=== PATIENT | female | born 1940 | race Caucasian/White ===

== ENCOUNTER → 2022-12-23 14:10 | Outpatient (BNVA) | payer MEDICARE, SELFPAY | PROVIDERS: Visit Provider Nurse Practitioner Family | DX: R39.9 Unspecified symptoms and signs involving the genitourinary system (principal); N39.0 Urinary tract infection, site not specified; R82.90 Unspecified abnormal findings in urine | CPT/HCPCS: 81000; 87077; 87086; 87184 ==

== ENCOUNTER 2023-05-20 04:15 | Inpatient (IN) | payer MEDICARE, SELFPAY ==
[2023-05-20] VITALS (27 sets, daily range): BP systolic 110–159; BP diastolic 56–84; PULSE 59–91; RESP 12–24; TEMP 36.3–37.1; O2SAT 90–100
--- NOTE | 2023-05-20 | XR_ITS ---
WS: [id number] XR hip LT 2-3V wo/w pel* [id number] REASON FOR EXAM: ALOK PICS FINDINGS: Long intramedullary xuan and large femoral nail fixation of intra/subtrochanteric fracture. Surgical appliances are intact and in proper position and alignment. Fracture fragments are in good position and alignment. Nondisplaced fractures of the left superior and inferior pubic ramus of unknown chronicity. IMPRESSION: Left hip fracture with fixation without abnormality. Left pubic rami fractures of unknown chronicity.
--- NOTE | 2023-05-20 04:19 | XRR_ITS ---
PROCEDURE INFORMATION: Exam: XR Left Hip Exam date and time: 05/20/2023 4:41 AM Age: 82 years old Clinical indication: Injury or trauma; Fall; Blunt trauma (contusions or hematomas); Left; Hip; Additional info: Fall pain TECHNIQUE: Imaging protocol: Radiologic exam of the left hip. Views: 2 or 3 views hip with pelvis when performed. COMPARISON: No relevant prior studies available. FINDINGS: Bones/joints: There is comminuted intertrochanteric fracture of the left femur. There is 90 degrees of lateral apex angulation. Additional fracture of the left pubic inferior and superior ramus. Soft tissues: Unremarkable. XR/XR hip LT 2-3V wo/w pel* [id number] IMPRESSION: 1. Comminuted and lateral angulated displaced intertrochanteric fracture of the left femur. 2. Minimally displaced fractures of the left superior and inferior pubic ramus.
--- NOTE | 2023-05-20 04:19 | XRR_ITS ---
PROCEDURE INFORMATION: Exam: XR Chest Exam date and time: 05/20/2023 4:31 AM Age: 82 years old Clinical indication: Injury or trauma; Fall; Blunt trauma (contusions or hematomas) TECHNIQUE: Imaging protocol: Radiologic exam of the chest. Views: 1 view. COMPARISON: No relevant prior studies available. FINDINGS: Tubes, catheters and devices: Surgical clips appreciated over the left hemiabdomen. Lungs: Linear opacities in the retrocardiac and left basilar region. Pleural spaces: Slight blunting of the left costophrenic angle Heart/Mediastinum: Unremarkable. No cardiomegaly. Bones/joints: Unremarkable. XR/XR chest 1V portable [id number] IMPRESSION: Findings suggest small left pleural effusion and associated atelectasis. Superimposed infection is not ruled out.
--- NOTE | 2023-05-20 04:29 | ED_ITS ---
HPI - Fall 2 General: Chief Complaint: Fall Stated Complaint: Fall/ LT hip pain Time Seen by Provider: 05/20/23 04:20 History of Present Illness: Patient presents to the ER secondary to mechanical fall and falling on her left hip having intense pain and inability to ambulate. EMS gave the patient 75 mcg of fentanyl 25 mg of ketamine 30 mg of Toradol and 4 mg of Zofran in the ambulance on the way to the ER. Patient does not complain of pain anywhere else other than her left hip region. Review of Systems 2 General: Reports: 10 or more systems reviewed and unremarkable except in HPI and below Physical Exam 2 Const: COMMON NORMALS: no acute distress, average body habitus, no limitations, healthy appearing, alert and well nourished HENMT: COMMON NORMALS: normocephalic, hearing grossly normal bilaterally, external ears normal, Normal external nose present and moist oral mucous membranes HEAD & SCALP: normocephalic NOSE: Normal external nose present EXTERNAL EAR: Yes external ears normal Neck/C-Spine: COMMON NORMALS: full ROM, no lymphadenopathy, supple, no meningeal signs, no JVD and Thyroid normal THYROID: Thyroid normal Chest: COMMONS NORMALS: normal inspection of the chest and normal palpation of entire chest wall Resp: COMMON NORMALS: normal respiratory effort, No retractions, No use of accessory muscles and clear to auscultation bilaterally AUSCULTATION: clear to auscultation bilaterally Cardio: COMMON NORMALS: no JVD, regular rate, regular rhythm, S1 normal heart sound present, S2 normal heart sound present, No gallops present (Cardio), No clicks present (Cardio) and No murmurs present (Cardio) RATE: regular rate RHYTHM: regular rhythm HEART SOUNDS: S1 normal heart sound present and S2 normal heart sound present GI: COMMON NORMALS: Normal to inspection, nondistended, normoactive bowel sounds present, Soft to palpation, non-tender and No hepatosplenomegaly present PALPATION: Yes Soft to palpation and Yes No hepatosplenomegaly present Extremity: NARRATIVE EXTREMITY EXAM: Patient's left hip. Tender to palpate, possible deformity with rotation noted. Neuro: SENSORIUM/ORIENTATION: Yes alert MENINGEAL SIGNS: Yes no meningeal signs Course 2 Vital Signs: Vital signs: Vital Signs Temperature 97.9 F 05/20/23 04:16 Pulse Rate 59 L 05/20/23 04:16 Respiratory Rate 18 05/20/23 04:53 Blood Pressure 141/79 05/20/23 04:16 Pulse Oximetry 98 05/20/23 04:53 Oxygen Delivery Me thod Room Air 05/20/23 04:16 MDM - Fall Medical Decision Making Left hip and pelvis x-ray showed what I would call left intertrochanteric hip fracture. Presurgical lab work, EKG, chest x-ray was obtained. All pending. was consulted who agreed for admission to the hospitalist and he will further evaluate her today. Dr. Conde was consulted who agreed for inpatient placement secondary to further evaluation and treatment. Differential Diagnosis Unlikely syncope, dislocation of shoulder region, fracture of wrist, compression fracture or concussion with loss of consciousness Medical Records I reviewed the patient's medical records. Lab Data I reviewed the patient's lab results. 05/20/23 05:04 05/20/23 05:04 Laboratory Results WBC 22.12 10^3/uL (3.29-11.43) H 05/20/23 05:04 RBC 4.64 10^6/uL (3.85-5.65) 05/20/23 05:04 Hgb 14.20 g/dL (11.27-16.99) 05/20/23 05:04 Hct 41.5 % (36-47) 05/20/23 05:04 MCV 89.4 fl (85-98) 05/20/23 05:04 MCH 30.6 pg (27-33) 05/20/23 05:04 MCHC 34.2 g/dL (30-55) 05/20/23 05:04 RDW 13.2 % (12.1-15.1) 05/20/23 05:04 Plt Count 263 10^3/cmm (157-399) 05/20/23 05:04 MPV 10.3 fL (7.4-10.4) 05/20/23 05:04 Neut % (Auto) 87.6 % 05/20/23 05:04 Lymph % (Auto) 5.2 % 05/20/23 05:04 [place] % (Auto) 5.9 % 05/20/23 05:04 Eos % (Auto) 0.0 % 05/20/23 05:04 Baso % (Auto) 0.3 % 05/20/23 05:04 Neut # (Auto) 19.36 10^3/uL (1.8-7.7) H 05/20/23 05:04 Lymph # (Auto) 1.2 10^3/uL (0.8-4.8) 05/20/23 05:04 [place] # (Auto) 1.3 10^3/uL (0.2-0.9) H 05/20/23 05:04 Eos # (Auto) 0.0 10^3/uL (0.0-0.8) 05/20/23 05:04 Baso # (Auto) 0.1 10^3/uL (0.0-0.1) 05/20/23 05:04 Nucleated RBC % (auto) 0 % 05/20/23 05:04 Nucleated RBCs # 0.0 /100WBC 05/20/23 05:04 All radiology interpretation(s) finalized by discharge EKG Data EKG 1: I personally reviewed and interpreted this EKG as follows: EKG interpretation date: 05/20/23 EKG interpretation time: 05: Prior EKG tracings: not available for review Interpretation: EKG showed ventricular rate 55 beats minute, [place] interval 154, QRS duration 96, QTc of 427, sinus bradycardia, borderline left axis deviation, Discharge Plan Discharge Patient Disposition: Admitted As Inpatient Clinical Impression: Closed fracture of left hip, Fall, Leukocytosis, Hypothyroidism Condition: Stable Coding Level of Care Code ED Science Technician for Tristan Hubbard
[2023-05-20] MEDS: morphine 4 mg/mL SDV 1 mL IVP (04:53)
[2023-05-20] MEDS: ondansetron 2 mg/ML SDV 2 mL 4 MG IVP ×5 (04:53→23:39)
--- NOTE | 2023-05-20 04:54 | ECG_ITS ---
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 Measurements Intervals [place] Rate: 55 P: 68 [place]: 154 QRS: -29 QRSD: 96 T: -63 QT: 438 QTc: 421 Interpretive Statements SINUS BRADYCARDIA BORDERLINE LEFT AXIS DEVIATION [QRS AXIS < -20] MODERATE T-WAVE ABNORMALITY, CONSIDER INFERIOR ISCHEMIA [-0.1+ mV T-WAVE IN II/aVF] No previous ECG available for comparison Electronically Signed On 05-21-2023 23:17:38 BIOLOGICAL SCIENCES INSTRUCTOR by Casey Segura M.D. [id number]
[2023-05-20 05:15] LABS: Basophils # 0.1 10^3/uL (0.0-0.1); Basophils % 0.3 %; Hematocrit 41.5 % (36-47); Lymphocytes # 1.2 10^3/uL (0.8-4.8); Lymphocytes % 5.2 %; Mean Corpuscular HGB Conc 34.2 g/dL (30-55); Mean Corpuscular Hemoglobin 30.6 pg (27-33); Mean Corpuscular Volume 89.4 fl (85-98); Mean Platelet Volume 10.3 fL (7.4-10.4); Monocytes # 1.3 10^3/uL (0.2-0.9); Monocytes % 5.9 %; Neutrophils # 19.36 10^3/uL (1.8-7.7); Neutrophils % 87.6 %; Nucleated Red Blood Cells % 0 %; Platelet Count 263 10^3/cmm (157-399); Red Blood Count 4.64 10^6/uL (3.85-5.65); Red Cell Distribution Width 13.2 % (12.1-15.1); White Blood Count 22.12 10^3/uL (3.29-11.43)
--- NOTE | 2023-05-20 05:15 | ECG_ITS ---
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 Measurements Intervals [place] Rate: 55 P: 68 MT: 154 QRS: -29 QRSD: 96 T: -63 QT: 438 QTc: 421 Interpretive Statements SINUS BRADYCARDIA BORDERLINE LEFT AXIS DEVIATION [QRS AXIS < -20] MODERATE T-WAVE ABNORMALITY, CONSIDER INFERIOR ISCHEMIA [-0.1+ mV T-WAVE IN II/aVF] No previous ECG available for comparison Electronically Signed On 05-21-2023 23:17:32 ESTHETICIAN PERMANENT MAKEUP ARTIST by Casey Segura M.D. [id number]
[2023-05-20 05:27] LABS: INR 1.38 (0.8-1.2)
[2023-05-20 05:34] LABS: Troponin(5th) Baseline 9 ng/L (0-10)
--- NOTE | 2023-05-20 05:45 | CTR_ITS ---
PROCEDURE INFORMATION: Exam: CT Head Without Contrast Exam date and time: 05/20/2023 6:12 AM Age: 82 years old Clinical indication: Injury or trauma; Fall; Blunt trauma (contusions or hematomas); Additional info: AMS TECHNIQUE: Imaging protocol: Computed tomography of the head without contrast. Radiation optimization: All CT scans at this facility use at least one of these dose optimization techniques: automated exposure control; mA and/or kV adjustment per patient size (includes targeted exams where dose is matched to clinical indication); or iterative reconstruction. COMPARISON: No relevant prior studies available. RADIATION DOSE METRICS: Total DLP (mGy-cm): 1035.19 FINDINGS: Brain: No hemorrhage. Periventricular white matter lucency represents atherosclerotic encephalopathic changes. No mass effect. Cerebral ventricles: No ventriculomegaly. Ventricular prominence proportionate to the degree of atrophy observed. Paranasal sinuses: Visualized sinuses are unremarkable. No fluid levels. Mastoid air cells: Visualized mastoid air cells are well aerated. Bones/joints: Unremarkable. No acute fracture. Soft tissues: Unremarkable. CT/CT head wo con* [id number] IMPRESSION: No acute intracranial abnormality.
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
[2023-05-20 05:50] LABS: Lactic Sepsis W/Reflex 3.3 mmol/L (0.5-2.2)
[2023-05-20 05:56] LABS: Add Urine Microscopic? YES; Bilirubin Urine Neg (Negative); Blood Urine 3+ (Negative); Glucose Urine UA Norm (Normal); Ketones Urine 2+ (Negative); Leukocyte Esterase Urine 2+ (Negative); Nitrate Urine Positive (Negative); Protein Urine Trace (Negative); Urine Appearance Hazy (CLEAR); Urine Color Yellow (Yellow); Urobilinogen Urine Neg (Negative); pH Urine 5 (5-7)
[2023-05-20 05:59] LABS: Bacteria Urine 3+ /hpf; RBC Urine 15-25 /hpf (0-2); Squamous Epithelial Cell Urine 0-4 /hpf (0-5); WBC Urine 15-25 /hpf (0-5)
[2023-05-20 06:00] LABS: Add Urine Culture? Yes; Mucus Urine 1+ /hpf
[2023-05-20 06:19] LABS: Alanine Aminotransferase 17 U/L (0-33); Albumin Level 3.6 g/dL (3.5-5.2); Alkaline Phosphatase 74 U/L (35-105); Aspartate Amino Transferase 19 U/L (0-32); Blood Urea Nitrogen 9 mg/dL (8-23); Calcium 8.7 mg/dL (8.5-10.5); Carbon Dioxide 22 mmol/L (22-29); Chloride 108 mmol/L (98-107); Creatine Phosphokinase 82 U/L (26-192); Globulin 2.2 g/dL (1.3-4.6); Glucose 153 mg/dL (65-115); Lipase 21 U/L (13-60); Magnesium 1.6 mg/dL (1.7-2.3); Osmolality Calculated 294 mOsm/kg (285-295); Phosphorus 2.1 mg/dL (2.5-4.5); Sodium 141 mmol/L (136-145); Total Bilirubin 1.5 mg/dL (0.15-1.2); Total Protein 5.8 g/dL (6.6-8.7)
[2023-05-20 06:20] LABS: Anion Gap 14.3 (5-19); Potassium 3.3 mmol/L (3.5-5.1)
[2023-05-20 06:26] LABS: Procalcitonin 0.09 ng/mL (0-0.5)
--- NOTE | 2023-05-20 07:20 | ECG_ITS ---
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 Measurements Intervals [place] Rate: 56 P: 59 [place]: 163 QRS: -52 QRSD: 93 T: -73 QT: 456 QTc: 441 Interpretive Statements SINUS BRADYCARDIA LEFT ANTERIOR FASCICULAR BLOCK [QRS AXIS <= -45, QR IN I, RS IN II] MODERATE T-WAVE ABNORMALITY, CONSIDER ANTEROLATERAL ISCHEMIA [-0.1+ mV T-WAVE IN V3-V6] MODERATE T-WAVE ABNORMALITY, CONSIDER INFERIOR ISCHEMIA [-0.1+ mV T-WAVE IN II/aVF] Compared to ECG 05/20/2023 05:02:28 Left anterior fascicular block now present T-wave abnormality still present Possible ischemia still present Electronically Signed On 05-21-2023 23:28:15 SOFTWARE IMPLEMENTATION PROJECT MANAGER by Casey Segura M.D. [id number]
[2023-05-20 07:22] LABS: Reflex Lactate Order REFLEX LACTIC ORDERD
--- NOTE | 2023-05-20 07:26 | PC.PHAR ---
pt and pts family verified pts medications-pt states she takes her levothyroxine 75mcg on odd days and 50mcg on even days-pts family states the pt has trouble swallowing so states they give her liquid b complex,multivitamins,zinc and iodine-pt states she takes an acid webmethods consultant otc states she is unsure on the name ext shows prilosec 40mg daily filled 10/08/22 90d/s-notes are made in the pharmacy comments
[2023-05-20] MEDS: pantoprazole 40 mg SDV IVP (07:46)
[2023-05-20] MEDS: morphine 4 mg/mL SDV 1 mL 2 MG IVP (07:46)
[2023-05-20 07:53] LABS: Adenovirus Not Detected (NOT DETECT); Chlamydia Pneumoniae Not Detected (NOT DETECT); Coronavirus 229E,HKU1,NL63,OC4 Not Detected (NOT DETECT); Human Metapneumovirus Not Detected (NOT DETECT); Human Rhinovirus/Enterovirus Not Detected (NOT DETECT); Influenza A Not Detected (NOT DETECT); Influenza A H1 Not Detected (NOT DETECT); Influenza A H1-2009 Not Detected (NOT DETECT); Influenza A H3 Not Detected (NOT DETECT); Influenza B Not Detected (NOT DETECT); Mycoplasma Pneumoniae Not Detected (NOT DETECT); Parainfluenza Virus Type 1 Not Detected (NOT DETECT); Parainfluenza Virus Type 2 Not Detected (NOT DETECT); Parainfluenza Virus Type 3 Not Detected (NOT DETECT); Parainfluenza Virus Type 4 Not Detected (NOT DETECT); Respiratory Syncytial Virus A Not Detected (NOT DETECT); Respiratory Syncytial Virus B Not Detected (NOT DETECT); SARS-COV-2 Not Detected (NOT DETECT)
[2023-05-20] MEDS: dextrose 5%-sod chloride 0.9% 1,000 ML 75 ML IV ×2 (07:57→12:39)
[2023-05-20 08:13] LABS: Estmated Average Glucose 108; Hemoglobin A1C 5.4 % (4.0-6.0)
[2023-05-20 08:14] LABS: Troponin 5 2HR 8.34 ng/L (0-10)
[2023-05-20 08:16] LABS: Troponin 5 2HR Delta -0.66 ABS# (0-10)
[2023-05-20 08:23] LABS: Thyroid Stimulating Hormone 14.56 uIU/mL (0.27-4.20)
--- NOTE | 2023-05-20 08:24 | PC.NURSE ---
PATIENT TAKEN TO SURGERY FROM THE ER AT 0823.
--- NOTE | 2023-05-20 08:29 | P.CONIM_ITS ---
Providers/Reason For Consult 2 Consulting Physician/Specialty*: Hospitalist Reason for Consult*: Left hip fracture Attending Physician: Brunilda Kelley MD History of Present Illness History of Present Illness Vaishali Retana is a 82 year old female sustained a left intertrochanteric hip fracture after a fall in the bathroom. She is complaining of pain in his left hip and leg is shortened externally rotated. Review of Systems 2 Const: Denies: fever(s) Card: Denies: chest pain Resp: Denies: dyspnea GI: Denies: abdominal pain : Denies: flank pain Medications/Allergies Home Medications Medication Instructions Recorded Confirmed Last Taken Type Iodine Liquid See Rx Instructions .Route .COMPLEX 05/20/23 05/20/23 Unknown History Zinc Liquid See Rx Instructions .Route .COMPLEX 05/20/23 05/20/23 Unknown History levothyroxine 50 mcg tablet 50 mcg PO .ON EVEN DAYS 05/20/23 05/20/23 Unknown History levothyroxine 75 mcg tablet 75 mcg PO .ON ODD DAYS 05/20/23 05/20/23 Unknown History llcldgwp-jelp-ptuooat gluconate 9 See Rx Instructions .Route .COMPLEX 05/20/23 05/20/23 Unknown History mg iron/15 mL (15 mL) oral liquid (Liquid Multivitamin) omeprazole magnesium 20 mg 20 mg PO BEDTIME 05/20/23 05/20/23 Unknown History capsule,delayed release (Acid Admitting Interviewer (omeprazole)) vitB2 1.7 mg-niacin 20 mg-B6 2 See Rx Instructions .Route .COMPLEX 05/20/23 05/20/23 Unknown History mg-B12 1.2 mg/mL-dexpan sublingual liqd (B Complex) Allergies Allergy/AdvReac Type Severity Reaction Status Date / Time No Known Allergies Allergy Verified 05/20/23 07:15 Current Medications Generic Name Dose Route Start Last Admin Trade Name Freq PRN Reason Stop Dose Admin Dextrose/Sodium Chloride 1,000 mls @ 75 mls/hr 05/20/23 07:26 05/20/23 07:57 Dextrose 5%-Sod Chloride 0.9% IV 75 mls/hr .[id number] FERN Administration Morphine Sulfate 2 mg 05/20/23 07:26 05/20/23 07:46 Morphine 4 Mg/Ml Sdv 1 Ml IVP 2 mg Q4H PRN Administration SEVERE PAIN Ondansetron HCl 4 mg 05/20/23 07:26 05/20/23 07:46 Ondansetron 2 Mg/Ml Sdv 2 Ml IVP 4 mg Q8H PRN Administration vomiting, or N/V if npo Pantoprazole Sodium 40 mg 05/20/23 07:26 05/20/23 07:46 Pantoprazole 40 Mg Sdv IVP 40 mg Q24H FERN Administration PFSH Acute 2 PFSH: Medical History (Updated 05/20/23 @ 05:53 by Josesito Quintero MD) History of hypothyroidism Surgical History (Updated 05/20/23 @ 05:49 by Josesito Quintero MD) History of appendectomy Social History (Updated 05/20/23 @ 05:49 by Josesito Quintero MD) Smoking and tobacco/nicotine status: never used tobacco/nicotine Alcohol intake: never Substance/Drug Use: never Vitals/I&O/Wt Last Vital Signs Temp 97.9 F 05/20/23 04:16 Pulse 65 05/20/23 08:00 Resp 19 H 05/20/23 07:46 BP 152/81 05/20/23 08:00 Pulse Ox 99 05/20/23 08:00 O2 Del Method Nasal Cannula 05/20/23 08:04 O2 Flow Rate 2 05/20/23 08:00 Weight last 48 hrs Weight 120 lb Physical Exam 2 Narrative: Left leg shortened and externally rotated Urinary Catheter Management: Cornelius: Cath Placed During This Visit: yes Urinary Catheter Date of Insertion: 05/20/23 Urinary Catheter Time of Insertion: 05:41 Data 05/20/23 05:04 05/20/23 05:56 A&P Assessment and plan (1) Closed fracture of left hip: Left hip nail today. I had an open and honest discussion with the patient about the risks, benefits and alternatives to both surgical and nonsurgical treatment. The patient verbalized understanding of the inherent unpredictability associated with surgery. Risk of surgery were discussed including, but not limited to, infection, bleeding, temporary and permanent nerve damage, continued pain, stiffness, incomplete healing, need for revision surgery, blood clot and other complications. The patient verbalized understanding that there is spine is elective in nature and if they find any of these risks to be unacceptable then they should choose not to have the surgery. The patient verbalized understanding of these risks and elected to proceed with the surgery. Qualifiers: Encounter type: initial encounter Qualified Code(s): S72.002A - Fracture of unspecified part of neck of left femur, initial encounter for closed fracture Coding Level of Care Code Acute Code for Chg Fwd Diagnoses Closed fracture of left hip S72.002A Encounter type: initial encounter
--- NOTE | 2023-05-20 08:43 | P.ANESASSM_ITS ---
Pre-Anesthetic Assessment Height/Weight: Height 1.65 m Weight 54.431 kg Temp Pulse Resp BP Pulse Ox O2 Del Method O2 Flow Rate 97.9 F 65 19 H 152/81 99 Nasal Cannula 2 05/20/23 04:16 05/20/23 08:00 05/20/23 07:46 05/20/23 08:00 05/20/23 08:00 05/20/23 08:04 05/20/23 08:00 Preop Diagnosis: left hip fracture Operation Date: 05/20/23 15:50 Proposed Procedures p Trochanteric Femoral Nail(Left) - Kirk Coleman, Familial anesthetic complications: NOne Was Beta Flynn taken within 24 hours: N/A Was Clonidine taken within 24 hours: N/A Last intake: > 8hrs Social No alcohol and No tobacco Exam alert, oriented x 3, clear to auscultation bilaterally and regular rate & rhythm Airway Mallampati: Class I Dentition: false GI Gastroesophageal Reflux Disease Metabolic Thyroid Disease Anesthetic Plan ASA status: 3 Anesthesia: General Risk of > 500 ml blood loss (7ml/kg in children): No Medications/Allergies Home Medications Medication Instructions Recorded Confirmed Last Taken Type Iodine Liquid See Rx Instructions .Route .COMPLEX 05/20/23 05/20/23 Unknown History Zinc Liquid See Rx Instructions .Route .COMPLEX 05/20/23 05/20/23 Unknown History levothyroxine 50 mcg tablet 50 mcg PO .ON EVEN DAYS 05/20/23 05/20/23 Unknown History levothyroxine 75 mcg tablet 75 mcg PO .ON ODD DAYS 05/20/23 05/20/23 Unknown History [id number] gluconate 9 See Rx Instructions .Route .COMPLEX 05/20/23 05/20/23 Unknown History mg iron/15 mL (15 mL) oral liquid (Liquid Multivitamin) omeprazole magnesium 20 mg 20 mg PO BEDTIME 05/20/23 05/20/23 Unknown History capsule,delayed release (Acid Safety Net Maker (omeprazole)) vitB2 1.7 mg-niacin 20 mg-B6 2 See Rx Instructions .Route .COMPLEX 05/20/23 05/20/23 Unknown History mg-B12 1.2 mg/mL-dexpan sublingual liqd (B Complex) Allergies Allergy/AdvReac Type Severity Reaction Status Date / Time No Known Allergies Allergy Verified 05/20/23 07:15 Current Medications Generic Name Dose Route Start Last Admin Trade Name Freq PRN Reason Stop Dose Admin Dextrose/Sodium Chloride 1,000 mls @ 75 mls/hr 05/20/23 07:26 05/20/23 07:57 Dextrose 5%-Sod Chloride 0.9% IV 75 mls/hr .[id number] FERN Administration Morphine Sulfate 2 mg 05/20/23 07:26 05/20/23 07:46 Morphine 4 Mg/Ml Sdv 1 Ml IVP 2 mg Q4H PRN Administration SEVERE PAIN Ondansetron HCl 4 mg 05/20/23 07:26 05/20/23 07:46 Ondansetron 2 Mg/Ml Sdv 2 Ml IVP 4 mg Q8H PRN Administration vomiting, or N/V if npo Pantoprazole Sodium 40 mg 05/20/23 07:26 05/20/23 07:46 Pantoprazole 40 Mg Sdv IVP 40 mg Q24H FERN Administration PFSH Anesthesia Medical History (Updated 05/20/23 @ 05:53 by Josesito Quintero MD) History of hypothyroidism Surgical History (Updated 05/20/23 @ 05:49 by Josesito Quintero MD) History of appendectomy Social History (Updated 05/20/23 @ 05:49 by Josesito Quintero MD) Smoking and tobacco/nicotine status: never used tobacco/nicotine Alcohol intake: never Substance/Drug Use: never Data Anesthesia 05/20/23 05:04 05/20/23 05:56 Short CBC 05/20/23 Range/Units 05:04 WBC 22.12 H (3.29-11.43) 10^3/uL Hgb 14.20 (11.27-16.99) g/dL Hct 41.5 (36-47) % MCV 89.4 (85-98) fl Plt Count 263 (157-399) 10^3/cmm Neut % (Auto) 87.6 % Neut # (Auto) 19.36 H (1.8-7.7) 10^3/uL BMP 05/20/23 05/20/23 05:04 05:56 Sodium Cancelled 141 Potassium Cancelled 3.3 L Chloride Cancelled 108 H Carbon Dioxide Cancelled 22 BUN Cancelled 9 Creatinine Cancelled 0.5 Glucose Cancelled 153 H Calcium Cancelled 8.7 Cardiac Enzymes 05/20/23 05/20/23 05/20/23 Range/Units 05:04 05:56 07:40 Creatine Kinase 82 (26-192) U/L Troponin T Baseline 9 (0-10) ng/L Troponin T 120 Minute 8.34 (0-10) ng/L Delta Troponin T -0.66 L (0-10) ABS# Liver Function 05/20/23 05/20/23 Range/Units 05:04 05:56 Total Bilirubin Cancelled 1.5 H AST Cancelled 19 ALT Cancelled 17 Alkaline Phosphatase Cancelled 74 Albumin Cancelled 3.6 Urine 05/20/23 Range/Units 05:37 Urine Color Yellow (Yellow) Urine Appearance Hazy A (CLEAR) Urine pH 5 (5-7) Ur Specific Curtis 1.030 (1.005-1.030) Urine Protein Trace (Negative) Urine Glucose (UA) Norm (Normal) Urine Ketones 2+ H (Negative) Urine Nitrate Positive H (Negative) Urine Bilirubin Neg (Negative) Ur Leukocyte Esterase 2+ H (Negative) Urine RBC 15-25 H (0-2) /hpf Urine WBC 15-25 H (0-5) /hpf COVID Results 05/20/23 05:56 Coronavirus 229E (PCR) Not detected SARS-CoV-2 (PCR) Not detected Coags 05/20/23 05/20/23 05:04 05:56 PT 17.40 H INR 1.38 H C-Reactive Protein 3.0 Cardiac Studies: 2 No Data to Display
[2023-05-20] MEDS: sodium chloride 0.9% 1,000 ML 30 ML IV (09:09)
[2023-05-20] MEDS: ceFAZolin 2,000 MG in sodium chloride 0.9% (plus) 50 ML 100 MG IV ×2 (10:03→16:53)
--- NOTE | 2023-05-20 11:26 | P.OP_ITS ---
Operative Report Date of procedure: May 20, 2023 Pre-op diagnosis: Left intertrochanteric hip fracture Post-op diagnosis: same Post-op findings: Left long hip nail Surgeon: Kirk Coleman DO Estimated blood loss (mL): 25 Procedure: Left long hip nail Patient brought the operative suite after anesthesia was placed on the [place] table. All his impingement well-padded. Patient was prepped and draped sterile fashion. Skin incision made over the tip the greater trochanter. Starting r eamer was inserted. The guidewire was passed down to the knee. It measured to be 4 to 5 mm. 400 mm nail was chosen. The canal was reamed to 12 mm. The nail was then placed down the canal. The pin for the flexors placed in center center position of the femoral head. The cannot the screw pathway was drilled. 100 mm screw was placed. And then attention was brought down to the 2 distal locking screws by the knee. Skin incision made and using perfect shoshone-bannock technique with fluoroscopy the hole was drilled and then 2 screws were placed distally. Wounds were irrigated and closed with Vicryl and dariusz. Sterile dressings applied patient transferred to the PACU in stable condition.
[2023-05-20 21:19] LABS: Troponin 5 6HR 11.59 ng/L (0-10)
[2023-05-20 21:21] LABS: Troponin 5 6HR Delta 2.59 ng/L (0-12)
[2023-05-20 21:22] LABS: Lactic Acid level (Lactate) 1.7 mmol/L (0.5-2.2)
[2023-05-20 23:40] LABS: Glucose Point of Care 140 mg/dL (70-110)
[2023-05-21] VITALS (9 sets, daily range): BP systolic 108–127; BP diastolic 61–78; PULSE 78–107; RESP 16–22; TEMP 36.4–37.1; O2SAT 91–98
[2023-05-21] MEDS: morphine 4 mg/mL SDV 1 mL 2 MG IVP ×2 (00:16→12:53)
[2023-05-21] MEDS: ceFAZolin 2,000 MG in sodium chloride 0.9% (plus) 50 ML 100 MG IV ×2 (01:08→10:24)
[2023-05-21] MEDS: dextrose 5%-sod chloride 0.9% 1,000 ML 75 ML IV ×2 (01:50→14:48)
[2023-05-21] MEDS: levothyroxine 75 mcg Tablet PO (08:11)
[2023-05-21] MEDS: HYDROcodone-acetaminophen 5-325 mg Tablet PO ×2 (08:11→18:10)
[2023-05-21] MEDS: apixaban 5 mg Tablet 2.5 MG PO ×2 (08:12→18:10)
[2023-05-21] MEDS: pantoprazole 40 mg SDV IVP (08:12)
[2023-05-21] MEDS: cefTRIAXone 1,000 MG in sodium chloride 0.9% (plus) 50 ML 100 MG IV (08:13)
[2023-05-21] MEDS: ondansetron 2 mg/ML SDV 2 mL 4 MG IVP ×2 (08:17→12:58)
--- NOTE | 2023-05-21 10:10 | PC.OT ---
ATTEMPTED OT EVAL WITH PT NAUSEOUS AND DECLINING TX; WILL ATTEMPT AT LATER TIME
--- NOTE | 2023-05-21 11:59 | P.PN_ITS ---
Subjective 2 Subjective: Patient resting in bed pain controlled Vitals/I&O/Wt Last Vital Signs Temp 98.3 F 05/21/23 08:15 Pulse 107 H 05/21/23 08:15 Resp 20 H 05/21/23 08:15 BP 108/75 05/21/23 08:15 Pulse Ox 98 05/21/23 08:15 O2 Del Method Nasal Cannula 05/21/23 08:15 O2 Flow Rate 3 05/21/23 08:15 05/20/23 05/21/23 05/21/23 22:59 06:59 14:59 Intake Total 50 / 1452.5 1038.75 / 2491.25 100 / 100 Output Total 300 / 310 Balance 50 / 1442.5 738.75 / 2181.25 100 / 100 Weight last 48 hrs Weight 133 lb 4.8 oz Weight 120 lb Weight 120 lb Physical Exam 2 Narrative: Resting in bed moving all extremities. Son was in the room at the time. Encouraged her to get up and walk with therapy. Urinary Catheter Management: Cornelius: Cath Placed During This Visit: yes Reason for Continuing Indwelling Catheter: Required Immobilization for Trauma or Surgery or Anesthesia Urinary Catheter Date of Insertion: 05/20/23 Urinary Catheter Time of Insertion: 05:41 Data 05/20/23 05:04 05/20/23 05:56 Micro: Microbiology 05/20/23 05:37 Urine Culture - Preliminary Urine,Clean Catch Gram Negative Rods A&P Assessment and plan (1) Closed fracture of left hip: Postop day #1 left hip nail. Up with therapy DVT prophylaxis with Eliquis Weight-bear as tolerated Discharge planning likely to alf per physical therapy evaluation. Qualifiers: Encounter type: initial encounter Qualified Code(s): S72.002A - Fracture of unspecified part of neck of left femur, initial encounter for closed fracture Attestations 2 Medical Necessity Statement*: Per primary service Coding Level of Care Code Acute Code for Chg Fwd Diagnoses Closed fracture of left hip S72.002A Encounter type: initial encounter
[2023-05-21 12:36] LABS: Basophils % 0.1 %; Hematocrit 30.5 % (36-47); Lymphocytes # 1.1 10^3/uL (0.8-4.8); Lymphocytes % 5.4 %; Mean Corpuscular HGB Conc 33.4 g/dL (30-55); Mean Corpuscular Hemoglobin 31.3 pg (27-33); Mean Corpuscular Volume 93.6 fl (85-98); Mean Platelet Volume 10.3 fL (7.4-10.4); Monocytes # 1.4 10^3/uL (0.2-0.9); Monocytes % 6.8 %; Neutrophils # 17.52 10^3/uL (1.8-7.7); Neutrophils % 86.9 %; Nucleated Red Blood Cells % 0 %; Platelet Count 218 10^3/cmm (157-399); Red Blood Count 3.26 10^6/uL (3.85-5.65); Red Cell Distribution Width 13.9 % (12.1-15.1); White Blood Count 20.17 10^3/uL (3.29-11.43)
[2023-05-21 12:54] LABS: Anion Gap 14.5 (5-19); Blood Urea Nitrogen 15 mg/dL (8-23); Calcium 8.5 mg/dL (8.5-10.5); Carbon Dioxide 22 mmol/L (22-29); Chloride 113 mmol/L (98-107); Glucose 135 mg/dL (65-115); Osmolality Calculated 303 mOsm/kg (285-295); Potassium 4.5 mmol/L (3.5-5.1); Sodium 145 mmol/L (136-145)
--- NOTE | 2023-05-21 12:59 | P.PN_ITS ---
Subjective 2 Subjective: Seen this morning. Son at bedside. Patient is doing well. Vitals/I&O/Wt Last Vital Signs Temp 98.7 F 05/21/23 12:16 Pulse 83 05/21/23 12:16 Resp 16 05/21/23 12:53 BP 127/61 05/21/23 12:16 Pulse Ox 95 05/21/23 12:16 O2 Del Method Nasal Cannula 05/21/23 08:15 O2 Flow Rate 3 05/21/23 08:15 05/20/23 05/21/23 05/21/23 22:59 06:59 14:59 Intake Total 50 / 1452.5 1038.75 / 2491.25 100 / 100 Output Total 300 / 310 Balance 50 / 1442.5 738.75 / 2181.25 100 / 100 Weight last 48 hrs Weight 60.464 kg Weight 54.431 kg Weight 54.431 kg Physical Exam 2 Const: COMMON NORMALS: no acute distress ORIENTATION/CONSCIOUSNESS: Yes awake, Yes oriented to person and Yes oriented to place; not oriented to time Eye: COMMON NORMALS: Equal, round and reactive pupils present and EOMs intact bilaterally PUPIL: Yes Equal, round and reactive pupils present Neck/C-Spine: COMMON NORMALS: full ROM and no lymphadenopathy Resp: COMMON NORMALS: normal respiratory effort, No retractions, No use of accessory muscles and clear to auscultation bilaterally AUSCULTATION: clear to auscultation bilaterally Cardio: COMMON NORMALS: regular rate, regular rhythm, S1 normal heart sound present and S2 normal heart sound present RATE: regular rate RHYTHM: r egular rhythm HEART SOUNDS: S1 normal heart sound present and S2 normal heart sound present GI: COMMON NORMALS: Normal to inspection, nondistended, normoactive bowel sounds present, Soft to palpation and non-tender PALPATION: Yes Soft to palpation Extremity: COMMON NORMALS: no calf tenderness and no pedal edema Neuro: COMMON NORMALS: CN's II-XII intact bilaterally and moves all extremities SENSORIUM/ORIENTATION: Yes oriented to person, Yes oriented to place and No oriented to time Urinary Catheter Management: Cornelius: Cath Placed During This Visit: yes Reason for Continuing Indwelling Catheter: Required Immobilization for Trauma or Surgery or Anesthesia Urinary Catheter Date of Insertion: 05/20/23 Urinary Catheter Time of Insertion: 05:41 Data 05/21/23 12:30 05/21/23 12:30 Micro: Microbiology 05/20/23 05:37 Urine Culture - Preliminary Urine,Clean Catch Gram Negative Rods A&P Assessment and plan (1) Closed fracture of left hip: Qualifiers: Encounter type: initial encounter Qualified Code(s): S72.002A - Fracture of unspecified part of neck of left femur, initial encounter for closed fracture (2) Fall: Qualifiers: Encounter type: initial encounter Qualified Code(s): W19.XXXA - Unspecified fall, initial encounter (3) Acute encephalopathy: Plan Left hip fracture, Postop day #1 left hip nail. ? N.p.o. ? IV fluids ? Morphine for pain control ? Zofran for nausea, ? SCDs for DVT prophylaxis - eliquis at dc Acute encephalopathy - resolved ? CT head - neg UTI - encephalopathy 2/2 to uti - gm neg rods in urine - cnotinue ceftriaxone Leukocytosis, ? UA positive, chest x-ray: small left pleural effusion and associated atelectasis. Superimposed infection is not ruled out. , CODE STATUS: dnr/dni PT/OT Attestations 2 Medical Necessity Statement*: hip fracture Diagnoses Closed fracture of left hip S72.002A Encounter type: initial encounter Fall W19.XXXA Encounter type: initial encounter Acute encephalopathy G93.40
[2023-05-21] MEDS: LORazepam 2 mg/mL INJ 10 mL MDV IVP (13:19)
[2023-05-21] MEDS: sodium chloride 0.9% 500 ML 999 ML IV (18:11)
[2023-05-22] VITALS (7 sets, daily range): BP systolic 109–124; BP diastolic 55–73; PULSE 74–94; RESP 16; TEMP 36.7–37.1; O2SAT 91–95; BMI 23.1
[2023-05-22] MEDS: dextrose 5%-sod chloride 0.9% 1,000 ML 75 ML IV ×2 (04:18→18:22)
[2023-05-22 05:34] LABS: Basophils % 0.3 %; Eosinophils # 0.1 10^3/uL (0.0-0.8); Hematocrit 27.1 % (36-47); Lymphocytes # 1.6 10^3/uL (0.8-4.8); Lymphocytes % 13.9 %; Mean Corpuscular HGB Conc 32.8 g/dL (30-55); Mean Corpuscular Hemoglobin 31.1 pg (27-33); Mean Corpuscular Volume 94.8 fl (85-98); Mean Platelet Volume 10.2 fL (7.4-10.4); Monocytes # 0.9 10^3/uL (0.2-0.9); Monocytes % 7.2 %; Neutrophils # 9.03 10^3/uL (1.8-7.7); Nucleated Red Blood Cells % 0 %; Platelet Count 155 10^3/cmm (157-399); Red Blood Count 2.86 10^6/uL (3.85-5.65); White Blood Count 11.73 10^3/uL (3.29-11.43)
[2023-05-22 05:52] LABS: Anion Gap 9.2 (5-19); Blood Urea Nitrogen 14 mg/dL (8-23); Carbon Dioxide 23 mmol/L (22-29); Chloride 115 mmol/L (98-107); Glucose 113 mg/dL (65-115); Osmolality Calculated 297 mOsm/kg (285-295); Potassium 4.2 mmol/L (3.5-5.1); Sodium 143 mmol/L (136-145)
[2023-05-22] MEDS: apixaban 5 mg Tablet 2.5 MG PO ×2 (08:49→18:22)
[2023-05-22] MEDS: cefTRIAXone 1,000 MG in sodium chloride 0.9% (plus) 50 ML 100 MG IV (08:49)
[2023-05-22] MEDS: pantoprazole 40 mg SDV IVP (08:49)
[2023-05-22] MEDS: levothyroxine 75 mcg Tablet PO (08:50)
[2023-05-22] MEDS: morphine 4 mg/mL SDV 1 mL 2 MG IVP (10:26)
--- NOTE | 2023-05-22 11:18 | P.PN_ITS ---
Subjective 2 Subjective: Patient is doing well resting in bed currently. Will add a oral pain medication for her. Vitals/I&O/Wt Last Vital Signs Temp 98.5 F 05/22/23 07:28 Pulse 77 05/22/23 07:28 Resp 16 05/22/23 07:28 BP 121/64 05/22/23 07:28 Pulse Ox 95 05/22/23 07:28 O2 Del Method Nasal Cannula 05/22/23 07:28 O2 Flow Rate 1 05/22/23 04:00 05/21/23 05/22/23 05/22/23 22:59 06:59 14:59 Intake Total 980 / 2052.5 1000 / 3052.5 480 / 480 Output Total 310 / 310 550 / 860 Balance 670 / 1742.5 450 / 2192.5 480 / 480 Weight last 48 hrs Weight 139 lb 6.4 oz Weight 133 lb 4.8 oz Weight 120 lb Physical Exam 2 Narrative: Patient resting in bed. Yesterday she was up to bedside. Urinary Catheter Management: Cornelius: Cath Placed During This Visit: yes Reason for Continuing Indwelling Catheter: Required Immobilization for Trauma or Surgery or Anesthesia Urinary Catheter Date of Insertion: 05/20/23 Urinary Catheter Time of Insertion: 05:41 Data 05/22/23 05:20 05/22/23 05:20 Micro: Microbiology 05/20/23 05:37 Urine Culture - Preliminary Urine,Clean Catch Gram Negative Rods A&P Assessment and plan (1) Closed fracture of left hip: Postop day #2 left hip nail. Up with PT DVT prophylaxis Discharge planning Qualifiers: Encounter type: initial encounter Qualified Code(s): S72.002A - Fracture of unspecified part of neck of left femur, initial encounter for closed fracture Attestations 2 Medical Necessity Statement*: Per primary service Coding Level of Care Code Acute Code for Chg Fwd Diagnoses Closed fracture of left hip S72.002A Encounter type: initial encounter
--- NOTE | 2023-05-22 13:04 | P.PN_ITS ---
Subjective 2 Subjective: Seen this morning. Patient states she was able to sit up at side of the bed and will be working with physical therapy today Vitals/I&O/Wt Last Vital Signs Temp 98.5 F 05/22/23 08:00 Pulse 77 05/22/23 08:00 Resp 16 05/22/23 08:00 BP 121/64 05/22/23 08:00 Pulse Ox 95 05/22/23 07:28 O2 Del Method Nasal Cannula 05/22/23 07:28 O2 Flow Rate 1 05/22/23 04:00 05/21/23 05/22/23 05/22/23 22:59 06:59 14:59 Intake Total 980 / 2052.5 1000 / 3052.5 480 / 480 Output Total 310 / 310 550 / 860 Balance 670 / 1742.5 450 / 2192.5 480 / 480 Weight last 48 hrs Weight 63.231 kg Weight 60.464 kg Physical Exam 2 Const: COMMON NORMALS: no acute distress ORIENTATION/CONSCIOUSNESS: Yes awake, Yes oriented to person and Yes oriented to place; not oriented to time Eye: COMMON NORMALS: Equal, round and reactive pupils present and EOMs intact bilaterally PUPIL: Yes Equal, round and reactive pupils present Neck/C-Spine: COMMON NORMALS: full ROM and no lymphadenopathy Resp: COMMON NORMALS: normal respiratory effort, No retractions, No use of accessory muscles and clear to auscultation bilaterally AUSCULTATION: clear to auscultation bilaterally Cardio: COMMON NORMALS: regular rate, regular rhythm, S1 normal heart sound present and S2 normal heart sound present RATE: regular rate RHYTHM: r egular rhythm HEART SOUNDS: S1 normal heart sound present and S2 normal heart sound present GI: COMMON NORMALS: Normal to inspection, nondistended, normoactive bowel sounds present, Soft to palpation and non-tender PALPATION: Yes Soft to palpation Extremity: COMMON NORMALS: no calf tenderness and no pedal edema Neuro: COMMON NORMALS: CN's II-XII intact bilaterally and moves all extremities SENSORIUM/ORIENTATION: Yes oriented to person, Yes oriented to place and No oriented to time Urinary Catheter Management: Cornelius: Cath Placed During This Visit: yes Reason for Continuing Indwelling Catheter: Required Immobilization for Trauma or Surgery or Anesthesia Urinary Catheter Date of Insertion: 05/20/23 Urinary Catheter Time of Insertion: 05:41 Data 05/22/23 05:20 02/04/24 05:20 Micro: Microbiology 05/20/23 05:37 Urine Culture - Preliminary Urine,Clean Catch Gram Negative Rods A&P Assessment and plan (1) Closed fracture of left hip: Qualifiers: Encounter type: initial encounter Qualified Code(s): S72.002A - Fracture of unspecified part of neck of left femur, initial encounter for closed fracture (2) Fall: Qualifiers: Encounter type: initial encounter Qualified Code(s): W19.XXXA - Unspecified fall, initial encounter (3) Acute encephalopathy: Plan Left hip fracture, Postop day #1 left hip nail. ? N.p.o. ? IV fluids ? Morphine for pain control ? Zofran for nausea, ? SCDs for DVT prophylaxis - eliquis at dc Acute encephalopathy - resolved ? CT head - neg UTI - encephalopathy 2/2 to uti - gm neg rods in urine - cnotinue ceftriaxone Leukocytosis, ? UA positive, chest x-ray: small left pleural effusion and associated atelectasis. Superimposed infection is not ruled out. , CODE STATUS: dnr/dni PT/OT Attestations 2 Medical Necessity Statement*: hip fracture Diagnoses Closed fracture of left hip S72.002A Encounter type: initial encounter Fall W19.XXXA Encounter type: initial encounter Acute encephalopathy G93.40
[2023-05-22] MEDS: HYDROcodone-acetaminophen 5-325 mg Tablet PO ×2 (13:23→21:59)
--- NOTE | 2023-05-22 13:31 | PC.NURSE ---
Notified Dr. Coleman due to dressing soiled and some bright red blood. Dr. Coleman gave verbal orders to change dressing. This nurse applied ABD pad over top of petroleum qauze with island dressings.
--- NOTE | 2023-05-22 16:13 | PC.NUTR ---
PT requested PU4 diet d/t difficulty chewing, and requested vanilla Ensure w/meals.
[2023-05-23] VITALS (7 sets, daily range): BP systolic 117–149; BP diastolic 62–72; PULSE 80–103; RESP 16–18; TEMP 36.3–37.1; O2SAT 92–94; BMI 23.3
[2023-05-23 03:04] LABS: Basophils % 0.3 %; Eosinophils # 0.3 10^3/uL (0.0-0.8); Eosinophils % 3.2 %; Hematocrit 25.1 % (36-47); Lymphocytes # 1.6 10^3/uL (0.8-4.8); Lymphocytes % 17.5 %; Mean Corpuscular HGB Conc 33.1 g/dL (30-55); Mean Corpuscular Hemoglobin 30.7 pg (27-33); Mean Platelet Volume 10.8 fL (7.4-10.4); Monocytes # 0.8 10^3/uL (0.2-0.9); Monocytes % 8.4 %; Neutrophils # 6.49 10^3/uL (1.8-7.7); Neutrophils % 70.2 %; Nucleated Red Blood Cells % 0 %; Platelet Count 142 10^3/cmm (157-399); Red Cell Distribution Width 13.8 % (12.1-15.1); White Blood Count 9.26 10^3/uL (3.29-11.43)
[2023-05-23 03:28] LABS: Alanine Aminotransferase 25 U/L (0-33); Albumin Level 2.7 g/dL (3.5-5.2); Alkaline Phosphatase 55 U/L (35-105); Anion Gap 10.8 (5-19); Aspartate Amino Transferase 33 U/L (0-32); Blood Urea Nitrogen 10 mg/dL (8-23); Calcium 8.1 mg/dL (8.5-10.5); Carbon Dioxide 24 mmol/L (22-29); Chloride 112 mmol/L (98-107); Globulin 1.8 g/dL (1.3-4.6); Glucose 115 mg/dL (65-115); Magnesium 1.7 mg/dL (1.7-2.3); Osmolality Calculated 296 mOsm/kg (285-295); Potassium 3.8 mmol/L (3.5-5.1); Sodium 143 mmol/L (136-145); Total Bilirubin 1.1 mg/dL (0.15-1.2); Total Protein 4.5 g/dL (6.6-8.7)
[2023-05-23] MEDS: dextrose 5%-sod chloride 0.9% 1,000 ML 75 ML IV ×2 (06:58→21:01)
[2023-05-23] MEDS: apixaban 5 mg Tablet 2.5 MG PO ×2 (07:38→16:53)
[2023-05-23] MEDS: HYDROcodone-acetaminophen 5-325 mg Tablet PO ×3 (07:39→21:58)
[2023-05-23] MEDS: levothyroxine 75 mcg Tablet PO (07:39)
[2023-05-23] MEDS: cefTRIAXone 1,000 MG in sodium chloride 0.9% (plus) 50 ML 100 MG IV (07:41)
--- NOTE | 2023-05-23 09:40 | PC.CHAP ---
Pastoral Care Encounter/Spiritual Assessment Type of Contact [] Declined area supervisor visit [] Patient/Family/Request visit [] Outpatient visit [] Follow-up visit [] Physician referral [] Code/Alert [x] Routine visit [] Staff referral [] Actively dying [] Patient sleeping [] Family support [] [] Out of room [] Palliative care [] [] Receiving care in room [] Pre-surgical visit [] Trauma [] Long length of stay [] ICU visit [] Other: Relational/Emotional Strength [x] Patient feels connected with others/family/visitors/staff [x] Distress [] Loneliness/isolation [] Abandonment Spirituality of Patient [x] Person of [place]qu[place] [] Attends Oriental Orthodox of their [place] [x] Believes in Prayer [] Reads Bible or Holiness materials [] There are Spiritual issues to be addressed Sail Cutter Interventions [x] Prayer [x] Active listening [x] Non-anxious presence [x] Spiritual/emotional support [] Crisis/trauma care [] Spiritual counseling [] Bereavement support [] Provided bereavement packet [] Provided Bible/devotional materials [] Provided toy/stuffed animal, coloring book to patient or family member [] Provided Communion [] Anointing/[place] [] Salvation [x] Completed spiritual assessment [] Other: Impact on Illness or Injury [] Angry [] Fearful [] Anxious [] Often cries [] Exhaustion [] Unable to work [] Unable to attend scientology [] Unable to walk/stand [] Unable to read [] Unable to drive [] Unable to eat/drink [] Unable to sleep [] Unable to be with family [] Patient intubated [] Other: Summary Time spent with patient 5 min
[2023-05-23] MEDS: pantoprazole 40 mg SDV IVP (09:57)
--- NOTE | 2023-05-23 11:04 | P.PN_ITS ---
Subjective 2 Subjective: Patient is sitting up in chair looking great. Vitals/I&O/Wt Last Vital Signs Temp 98.7 F 05/23/23 08:00 Pulse 103 H 05/23/23 08:00 Resp 16 05/23/23 08:00 BP 126/64 05/23/23 08:00 Pulse Ox 93 05/23/23 08:00 O2 Del Method Room Air 05/23/23 08:00 O2 Flow Rate 1 05/22/23 04:00 05/22/23 05/23/23 05/23/23 22:59 06:59 14:59 Intake Total 1239 / 2009 945 / 2955 290 / 290 Output Total 300 / 600 300 / 900 Balance 940 / 1410 645 / 2055 290 / 290 Weight last 48 hrs Weight 140 lb 3.2 oz Weight 139 lb 6.4 oz Physical Exam 2 Narrative: Sitting up in chair doing well daughter at the bedside. Urinary Catheter Management: Cornelius: Cath Placed During This Visit: yes Reason for Continuing Indwelling Catheter: Required Immobilization for Trauma or Surgery or Anesthesia Urinary Catheter Date of Insertion: 05/20/23 Urinary Catheter Time of Insertion: 05:41 Data 05/23/23 02:34 05/23/23 02:34 Micro: Microbiology 05/20/23 06:09 Blood Culture - Preliminary Blood 05/20/23 06:03 Blood Culture - Preliminary Blood 05/20/23 05:37 Urine Culture - Final Urine,Clean Catch Escherichia coli A&P Assessment and plan (1) Closed fracture of left hip: Postop day #3 left hip nail. At this point patient is doing well okay to discharge from Ortho standpoint. Qualifiers: Encounter type: initial encounter Qualified Code(s): S72.002A - Fracture of unspecified part of neck of left femur, initial encounter for closed fracture Attestations 2 Medical Necessity Statement*: Per primary service Coding Level of Care Code Acute Code for Chg Fwd Diagnoses Closed fracture of left hip S72.002A Encounter type: initial encounter
--- NOTE | 2023-05-23 12:05 | PC.SOCIAL ---
Pg 2 IMM. Explained to pt's family Pg 2 IMM. no questions voiced. Provided pt a copy. Initialed, dated, & timed a copy & placed in chart.
--- NOTE | 2023-05-23 16:19 | P.PN_ITS ---
Subjective 2 Subjective: No acute interim events. Sitting up in chair this morning. Urine culture showing E. coli. Afebrile and hemodynamically stable. Medications: Reviewed: Yes Vitals/I&O/Wt Last Vital Signs Temp 97.3 F L 05/23/23 12:00 Pulse 85 05/23/23 12:00 Resp 16 05/23/23 12:00 BP 119/67 05/23/23 12:00 Pulse Ox 92 05/23/23 12:00 O2 Del Method Room Air 05/23/23 12:00 O2 Flow Rate 1 05/22/23 04:00 05/23/23 05/23/23 05/23/23 06:59 14:59 22:59 Intake Total 945 / 2955 290 / 290 Output Total 300 / 900 Balance 645 / 2055 290 / 290 Weight last 48 hrs Weight 63.594 kg Weight 63.231 kg Physical Exam 2 Narrative: General: No acute distress, AO x2 HEENT: PERRLA, pupils bilaterally equal and reactive, pallors not present Chest: Normal vesicular breath sounds, no added sounds, equal good air entry bilaterally CVS: S1-S2 regular, no murmurs, no tachycardia, no gallops, no rubs Abdomen: Soft, nontender, no organomegaly, bowel sounds present Neuro: No focal deficits, no facial deformity, AO x2, power 5/5 in all limbs Urinary Catheter Management: Cornelius: Cath Placed During This Visit: yes Reason for Continuing Indwelling Catheter: Required Immobilization for Trauma or Surgery or Anesthesia Urinary Catheter Date of Insertion: 05/20/23 Urinary Catheter Time of Insertion: 05:41 Data 05/23/23 02:34 05/23/23 02:34 Micro: Microbiology 05/20/23 06:09 Blood Culture - Preliminary Blood 05/20/23 06:03 Blood Culture - Preliminary Blood 05/20/23 05:37 Urine Culture - Final Urine,Clean Catch Escherichia coli A&P Assessment and plan (1) Closed fracture of left hip: Qualifiers: Encounter type: initial encounter Qualified Code(s): S72.002A - Fracture of unspecified part of neck of left femur, initial encounter for closed fracture (2) Fall: Qualifiers: Encounter type: initial encounter Qualified Code(s): W19.XXXA - Unspecified fall, initial encounter (3) Acute encephalopathy: Plan Left hip fracture, Postop day #1 left hip nail. ? N.p.o. ? IV fluids ? Morphine for pain control ? Zofran for nausea, ? SCDs for DVT prophylaxis - eliquis at dc Acute encephalopathy - resolved ? CT head - neg UTI - encephalopathy 2/2 to uti - gm neg rods in urine - cnotinue ceftriaxone Leukocytosis, ? UA positive, chest x-ray: small left pleural effusion and associated atelectasis. Superimposed infection is not ruled out. , CODE STATUS: dnr/dni PT/OT Plan for today May 23, 2023. No acute interim events. Ongoing disposition planning. Urine culture positive for E. coli from. Currently appropriately covered with ceftriaxone. Attestations 2 Medical Necessity Statement*: Awaiting appropriate disposition planning. Coding Level of Care Code Acute Code for Chg Fwd Diagnoses Closed fracture of left hip S72.002A Encounter type: initial encounter Fall W19.XXXA Encounter type: initial encounter Acute encephalopathy G93.40
[2023-05-24] VITALS: BP 125/68; PULSE 76; RESP 17; TEMP 36.9; O2SAT 91
[2023-05-24 04:00] VITALS: BP 155/73; PULSE 92; RESP 17; TEMP 36.9; O2SAT 90
[2023-05-24] MEDS: HYDROcodone-acetaminophen 5-325 mg Tablet PO ×3 (04:35→14:06)
[2023-05-24 06:15] LABS: Basophils % 0.3 %; Eosinophils # 0.4 10^3/uL (0.0-0.8); Eosinophils % 4.6 %; Hematocrit 25.1 % (36-47); Lymphocytes # 1.1 10^3/uL (0.8-4.8); Lymphocytes % 12.4 %; Mean Corpuscular HGB Conc 33.9 g/dL (30-55); Mean Corpuscular Hemoglobin 31.4 pg (27-33); Mean Corpuscular Volume 92.6 fl (85-98); Mean Platelet Volume 10.7 fL (7.4-10.4); Monocytes # 0.6 10^3/uL (0.2-0.9); Monocytes % 6.8 %; Neutrophils # 6.92 10^3/uL (1.8-7.7); Neutrophils % 75.4 %; Nucleated Red Blood Cells % 0 %; Platelet Count 186 10^3/cmm (157-399); Red Blood Count 2.71 10^6/uL (3.85-5.65); Red Cell Distribution Width 13.6 % (12.1-15.1); White Blood Count 9.18 10^3/uL (3.29-11.43)
[2023-05-24 06:42] LABS: Alanine Aminotransferase 26 U/L (0-33); Albumin Level 2.6 g/dL (3.5-5.2); Alkaline Phosphatase 63 U/L (35-105); Anion Gap 11.8 (5-19); Aspartate Amino Transferase 27 U/L (0-32); Blood Urea Nitrogen 7 mg/dL (8-23); Calcium 8.2 mg/dL (8.5-10.5); Carbon Dioxide 24 mmol/L (22-29); Chloride 110 mmol/L (98-107); Glucose 133 mg/dL (65-115); Osmolality Calculated 294 mOsm/kg (285-295); Potassium 3.8 mmol/L (3.5-5.1); Sodium 142 mmol/L (136-145); Total Bilirubin 1.6 mg/dL (0.15-1.2); Total Protein 4.6 g/dL (6.6-8.7)
[2023-05-24 06:45] LABS: Creatinine Clr Calc Pharmacy 49.7334
[2023-05-24 08:00] VITALS: BP 128/63; PULSE 91; RESP 16; TEMP 36.5; O2SAT 93
[2023-05-24] MEDS: cefTRIAXone 1,000 MG in sodium chloride 0.9% (plus) 50 ML 100 MG IV (08:00)
[2023-05-24] MEDS: levothyroxine 75 mcg Tablet PO (08:02)
[2023-05-24] MEDS: apixaban 5 mg Tablet 2.5 MG PO ×2 (08:02→16:51)
[2023-05-24] MEDS: pantoprazole 40 mg SDV IVP (08:10)
--- NOTE | 2023-05-24 09:49 | PC.CHAP ---
Pastoral Care Encounter/Spiritual Assessment Type of Contact [] Declined page makeup system operator visit [] Patient/Family/Request visit [] Outpatient visit [] Follow-up visit [] Physician referral [] Code/Alert [x] Routine visit [] Staff referral [] Actively dying [] Patient sleeping [] Family support [] [] Out of room [] Palliative care [] [] Receiving care in room [] Pre-surgical visit [] Trauma [] Long length of stay [] ICU visit [] Other: Relational/Emotional Strength [] Patient feels connected with others/family/visitors/staff [x] Distress [] Loneliness/isolation [] Abandonment Spirituality of Patient [x] Person of [place] [] Attends Mu-Ism of their [place] [x] Believes in Prayer [] Reads Bible or Catholic materials [] There are Spiritual issues to be addressed Client Onboarding Analyst Interventions [x] Prayer [x] Active listening [x] Non-anxious presence [x] Spiritual/emotional support [] Crisis/trauma care [] Spiritual counseling [] Bereavement support [] Provided bereavement packet [] Provided Bible/devotional materials [] Provided toy/stuffed animal, coloring book to patient or family member [] Provided Communion [] Anointing/[place] [] Salvation [x] Completed spiritual assessment [] Other: Impact on Illness or Injury [] Angry [] Fearful [] Anxious [] Often cries [] Exhaustion [] Unable to work [] Unable to attend taoism [] Unable to walk/stand [] Unable to read [] Unable to drive [] Unable to eat/drink [] Unable to sleep [] Unable to be with family [] Patient intubated [] Other: Summary Time spent with patient 10 min
[2023-05-24] MEDS: ALPRAZolam 0.5 mg Tablet 0.25 MG PO ×2 (10:22→16:51)
--- NOTE | 2023-05-24 11:30 | P.PN_ITS ---
Subjective 2 Subjective: No new complaints today. States that it hurts when she attempts to get up and walk around, but pain is okay at rest. Hemoglobin stable at 8.5. Alert awake oriented and able to have a full conversation. Medications: Reviewed: Yes Vitals/I&O/Wt Last Vital Signs Temp 97.7 F 05/24/23 08:00 Pulse 91 05/24/23 08:00 Resp 16 05/24/23 08:00 BP 128/63 05/24/23 08:00 Pulse Ox 93 05/24/23 08:00 O2 Del Method Room Air 05/24/23 08:00 O2 Flow Rate 1 05/22/23 04:00 05/23/23 05/24/23 05/24/23 22:59 06:59 14:59 Intake Total 1360 / 1650 1290 / 1290 Output Total 400 / 400 400 / 800 Balance 960 / 1250 -400 / 850 1290 / 1290 Weight last 48 hrs Weight 64.954 kg Weight 63.594 kg Physical Exam 2 Narrative: General: No acute distress, AO x3 HEENT: PERRLA, pupils bilaterally equal and reactive, pallors not present Chest: Normal vesicular breath sounds, no added sounds, equal good air entry bilaterally CVS: S1-S2 regular, no murmurs, no tachycardia, no gallops, no rubs Abdomen: Soft, nontender, no organomegaly, bowel sounds present Neuro: No focal deficits, no facial deformity, AO x3, power 5/5 in all limbs Urinary Catheter Management: Cornelius: Cath Placed During This Visit: yes Reason for Continuing Indwelling Catheter: Required Immobilization for Trauma or Surgery or Anesthesia Urinary Catheter Date of Insertion: 05/20/23 Urinary Catheter Time of Insertion: 05:41 Data 05/24/23 05:55 05/24/23 05:55 A&P Assessment and plan (1) Closed fracture of left hip: Qualifiers: Encounter type: initial encounter Qualified Code(s): S72.002A - Fracture of unspecified part of neck of left femur, initial encounter for closed fracture (2) Fall: Qualifiers: Encounter type: initial encounter Qualified Code(s): W19.XXXA - Unspecified fall, initial encounter (3) Acute encephalopathy: Plan Left hip fracture, Postop day #1 left hip nail. ? N.p.o. ? IV fluids ? Morphine for pain control ? Zofran for nausea, ? SCDs for DVT prophylaxis - eliquis at dc Acute encephalopathy - resolved ? CT head - neg UTI - encephalopathy 2/2 to uti - gm neg rods in urine - cnotinue ceftriaxone Leukocytosis, ? UA positive, chest x-ray: small left pleural effusion and associated atelectasis. Superimposed infection is not ruled out. , CODE STATUS: dnr/dni PT/OT Plan for today May 23, 2023. No acute interim events. Ongoing disposition planning. Urine culture positive for E. coli from. Currently appropriately covered with ceftriaxone. Plan for today May 24, 2023. No acute interim events. Discontinue Cornelius catheter. Discontinue IV fluids as patient able to tolerate p.o. intake. Continued rehab. Awaiting appropriate disposition planning. Attestations 2 Medical Necessity Statement*: awaiting appropriate disposiiotn planning, patient will benefit from continued skilled therapy Coding Level of Care Code Acute Code for [facility] Fwd Diagnoses Closed fracture of left hip S72.002A Encounter type: initial encounter Fall W19.XXXA Encounter type: initial encounter Acute encephalopathy G93.40
[2023-05-24 12:00] VITALS: BP 128/69; PULSE 89; RESP 18; TEMP 36.6; O2SAT 91
--- NOTE | 2023-05-24 12:02 | PC.OT ---
OT TREATMENT ATTEMPTED. PATIENT REQUESTS THAT WE RETURN LATER. AGREEABLE TO AFTER LUNCH TREATMENT.
[2023-05-24 16:00] VITALS: BP 144/75; PULSE 86; RESP 16; TEMP 36.7; O2SAT 93
[2023-05-24 20:00] VITALS: BP 157/75; PULSE 87; RESP 16; TEMP 36.6; O2SAT 92
[2023-05-25] VITALS: BP 145/83; PULSE 86; RESP 18; TEMP 36.6; O2SAT 95
[2023-05-25 04:00] VITALS: BP 149/65; PULSE 99; RESP 18; TEMP 37.3; O2SAT 93
[2023-05-25] MEDS: cefTRIAXone 1,000 MG in sodium chloride 0.9% (plus) 50 ML 100 MG IV (08:14)
[2023-05-25] MEDS: apixaban 5 mg Tablet 2.5 MG PO ×2 (08:14→17:54)
[2023-05-25] MEDS: levothyroxine 75 mcg Tablet PO (08:14)
[2023-05-25] MEDS: pantoprazole 40 mg SDV IVP (08:14)
[2023-05-25] MEDS: HYDROcodone-acetaminophen 5-325 mg Tablet PO ×2 (08:28→17:56)
[2023-05-25 08:36] VITALS: BP 127/60; PULSE 92; RESP 18; TEMP 37; O2SAT 94
[2023-05-25] MEDS: ALPRAZolam 0.5 mg Tablet 0.25 MG PO (08:48)
[2023-05-25 12:27] VITALS: BP 127/73; PULSE 93; RESP 18; TEMP 36.5; O2SAT 96
--- NOTE | 2023-05-25 13:56 | PC.SOCIAL ---
IMM Updated Updated pt on IMM. No questions voiced. Provided pt a copy. Initialed, dated, & timed copy in chart.
--- NOTE | 2023-05-25 14:59 | P.PN_ITS ---
Subjective 2 Subjective: no new compalins. Feels well except for anxiety which is limiting her abilityt o participate with PT. Medications: Reviewed: Yes Vitals/I&O/Wt Last Vital Signs Temp 97.7 F 05/25/23 12:27 Pulse 93 05/25/23 12:27 Resp 18 05/25/23 12:27 BP 127/73 05/25/23 12:27 Pulse Ox 96 05/25/23 12:27 O2 Del Method Room Air 05/25/23 12:27 O2 Flow Rate 1 05/22/23 04:00 05/24/23 05/25/23 05/25/23 22:59 06:59 14:59 Intake Total 360 / 1890 290 / 290 Balance 360 / 1890 290 / 290 Weight last 48 hrs Weight 60.691 kg Weight 64.954 kg Physical Exam 2 Narrative: General: No acute distress, AO x3 HEENT: PERRLA, pupils bilaterally equal and reactive, pallors not present Chest: Normal vesicular breath sounds, no added sounds, equal good air entry bilaterally CVS: S1-S2 regular, no murmurs, no tachycardia, no gallops, no rubs Abdomen: Soft, nontender, no organomegaly, bowel sounds present Neuro: No focal deficits, no facial deformity, AO x3, power 5/5 in all limbs Urinary Catheter Management: Cornelius: Cath Placed During This Visit: yes, but has since been removed by the nurse Reason for Continuing Indwelling Catheter: Decision to DC Catheter Urinary Catheter Date of Insertion: 05/20/23 Urinary Catheter Time of Insertion: 05:41 Date Urinary Catheter Removed: 05/24/23 Time Urinary Catheter Discontinued: 10:25 Data 05/24/23 05:55 05/24/23 05:55 A&P Assessment and plan (1) Closed fracture of left hip: Qualifiers: Encounter type: initial encounter Qualified Code(s): S72.002A - Fracture of unspecified part of neck of left femur, initial encounter for closed fracture (2) Fall: Qualifiers: Encounter type: initial encounter Qualified Code(s): W19.XXXA - Unspecified fall, initial encounter (3) Acute encephalopathy: Plan Left hip fracture, Postop day #1 left hip nail. ? N.p.o. ? IV fluids ? Morphine for pain control ? Zofran for nausea, ? SCDs for DVT prophylaxis - eliquis at dc Acute encephalopathy - resolved ? CT head - neg UTI - encephalopathy 2/2 to uti - gm neg rods in urine - cnotinue ceftriaxone Leukocytosis, ? UA positive, chest x-ray: small left pleural effusion and associated atelectasis. Superimposed infection is not ruled out. , CODE STATUS: dnr/dni PT/OT Plan for today May 23, 2023. No acute interim events. Ongoing disposition planning. Urine culture positive for E. coli from. Currently appropriately covered with ceftriaxone. Plan for today May 24, 2023. No acute interim events. Discontinue Cornelius catheter. Discontinue IV fluids as patient able to tolerate p.o. intake. Continued rehab. Awaiting appropriate disposition planning. Plan for today May 25, 2023. No acute interim events. Increase as needed Xanax 2.5 mg 3 times daily. Appropriate disposition ongoing so that patient can continue with rehab. Attestations 2 Medical Necessity Statement*: Awaiting appropriate disposition planning Coding Level of Care Code Acute Code for [facility] Fwd Diagnoses Closed fracture of left hip S72.002A Encounter type: initial encounter Fall W19.XXXA Encounter type: initial encounter Acute encephalopathy G93.40
[2023-05-25 16:14] VITALS: BP 117/67; PULSE 103; RESP 19; TEMP 36.4; O2SAT 97
[2023-05-25 19:49] VITALS: BP 109/67; PULSE 86; RESP 20; TEMP 36.6; O2SAT 93
[2023-05-26] VITALS (7 sets, daily range): BP systolic 118–143; BP diastolic 60–73; PULSE 73–106; RESP 14–21; TEMP 36.7–37.1; O2SAT 94–98
[2023-05-26] MEDS: HYDROcodone-acetaminophen 5-325 mg Tablet PO (06:14)
--- NOTE | 2023-05-26 06:56 | PC.NURSE ---
Patient only had 180 ml in urine output throughout shift, however is taking in very little orally. Dr. Cabrales notified.
[2023-05-26] MEDS: ALPRAZolam 0.5 mg Tablet PO ×2 (07:47→16:37)
[2023-05-26] MEDS: apixaban 5 mg Tablet 2.5 MG PO ×2 (07:47→16:37)
[2023-05-26] MEDS: levothyroxine 75 mcg Tablet PO (07:47)
[2023-05-26] MEDS: cefTRIAXone 1,000 MG in sodium chloride 0.9% (plus) 50 ML 100 MG IV (07:48)
[2023-05-26] MEDS: pantoprazole 40 mg SDV IVP (11:21)
--- NOTE | 2023-05-26 15:16 | P.PN_ITS ---
Subjective 2 Subjective: No new complaints today. Afebrile hemodynamically stable awaiting appropriate disposition planning. Medications: Reviewed: Yes Vitals/I&O/Wt Last Vital Signs Temp 98.5 F 05/26/23 07:05 Pulse 78 05/26/23 11:25 Resp 16 05/26/23 11:25 BP 119/73 05/26/23 11:25 Pulse Ox 94 05/26/23 11:25 O2 Del Method Room Air 05/26/23 11:25 O2 Flow Rate 1 05/22/23 04:00 05/26/23 05/26/23 05/26/23 06:59 14:59 22:59 Intake Total 50 / 580 110 / 110 Output Total 180 / 180 Balance -130 / 400 110 / 110 Weight last 48 hrs Weight 63.106 kg Weight 60.691 kg Physical Exam 2 Narrative: General: No acute distress, AO x3 HEENT: PERRLA, pupils bilaterally equal and reactive, pallors not present Chest: Normal vesicular breath sounds, no added sounds, equal good air entry bilaterally CVS: S1-S2 regular, no murmurs, no tachycardia, no gallops, no rubs Abdomen: Soft, nontender, no organomegaly, bowel sounds present Neuro: No focal deficits, no facial deformity, AO x3, power 5/5 in all limbs Urinary Catheter Management: Cornelius: Cath Placed During This Visit: yes, but has since been removed by the nurse Reason for Continuing Indwelling Catheter: Decision to DC Catheter Urinary Catheter Date of Insertion: 05/20/23 Urinary Catheter Time of Insertion: 05:41 Date Urinary Catheter Removed: 05/24/23 Time Urinary Catheter Discontinued: 10:25 Data 05/24/23 05:55 05/24/23 05:55 A&P Assessment and plan (1) Closed fracture of left hip: Qualifiers: Encounter type: initial encounter Qualified Code(s): S72.002A - Fracture of unspecified part of neck of left femur, initial encounter for closed fracture (2) Fall: Qualifiers: Encounter type: initial encounter Qualified Code(s): W19.XXXA - Unspecified fall, initial encounter (3) Acute encephalopathy: Plan Left hip fracture, Postop day #1 left hip nail. ? N.p.o. ? IV fluids ? Morphine for pain control ? Zofran for nausea, ? SCDs for DVT prophylaxis - eliquis at dc Acute encephalopathy - resolved ? CT head - neg UTI - encephalopathy 2/2 to uti - gm neg rods in urine - cnotinue ceftriaxone Leukocytosis, ? UA positive, chest x-ray: small left pleural effusion and associated atelectasis. Superimposed infection is not ruled out. , CODE STATUS: dnr/dni PT/OT Plan for today May 23, 2023. No acute interim events. Ongoing disposition planning. Urine culture positive for E. coli from. Currently appropriately covered with ceftriaxone. Plan for today May 24, 2023. No acute interim events. Discontinue Cornelius catheter. Discontinue IV fluids as patient able to tolerate p.o. intake. Continued rehab. Awaiting appropriate disposition planning. Plan for today May 25, 2023. No acute interim events. Increase as needed Xanax 2.5 mg 3 times daily. Appropriate disposition ongoing so that patient can continue with rehab. Plan for today May 26, 2023 no acute interim events. Awaiting appropriate disposition planning to allow for continued rehab. Attestations 2 Medical Necessity Statement*: Continued admission for disposition planning. Coding Level of Care Code Acute Code for [facility] Fwd Diagnoses Closed fracture of left hip S72.002A Encounter type: initial encounter Fall W19.XXXA Encounter type: initial encounter Acute encephalopathy G93.40
--- NOTE | 2023-05-26 16:36 | PC.OT ---
OT TREATMENT ATTEMPTED TWICE TODAY. PATIENT SLEEPING SOUNDLY ON BOTH OCCASIONS.
[2023-05-26] MEDS: morphine 4 mg/mL SDV 1 mL 2 MG IVP (16:39)
[2023-05-27] VITALS: BP 109/66; PULSE 92; RESP 18; TEMP 37.1; O2SAT 97
[2023-05-27 04:00] VITALS: BP 99/65; PULSE 99; RESP 19; TEMP 36.7; O2SAT 95
[2023-05-27 06:00] VITALS: BMI 23.4
[2023-05-27 08:00] VITALS: BP 124/68; PULSE 83; RESP 18; TEMP 37.1; O2SAT 94
[2023-05-27] MEDS: cefTRIAXone 1,000 MG in sodium chloride 0.9% (plus) 50 ML 100 MG IV (08:27)
[2023-05-27] MEDS: HYDROcodone-acetaminophen 5-325 mg Tablet PO (08:28)
[2023-05-27] MEDS: levothyroxine 75 mcg Tablet PO (08:28)
[2023-05-27] MEDS: ALPRAZolam 0.5 mg Tablet PO (08:28)
[2023-05-27] MEDS: apixaban 5 mg Tablet 2.5 MG PO (08:28)
[2023-05-27] MEDS: pantoprazole 40 mg SDV IVP (08:29)
[2023-05-27 12:06] VITALS: BP 105/63; PULSE 100; RESP 18; TEMP 36.5; O2SAT 94
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
--- NOTE | 2023-05-27 12:55 | PC.SOCIAL ---
IMM Updated Updated pt on IMM. No questions voiced. Provided pt a copy. Initialed, dated, & timed copy in chart.
[2023-05-27 14:00] LABS: SARS Covid-2 Antigen negative (Negative)
--- NOTE | 2023-05-27 14:29 | PC.NURSE ---
Called report to [facility] and waiting on [facility] to come to take the patient to the alf.
[2023-05-27 16:16] VITALS: BP 105/63; PULSE 100; RESP 18; TEMP 36.5; O2SAT 94
--- NOTE | 2023-05-27 16:16 | PC.NURSE ---
Discharge Note Patient discharged to [facility] via [facility] accompanied by [facility] transport vehicle. Discharge instructions reviewed with patient and/or professional healthcare representative. Mobile pharmacy medications and/or prescriptions provided. Belongings/home medications returned.
== END 2023-05-27 16:17 | disposition skilled nursing facility (03) | DRG 481 ==
LOC: ER 06:17 → ER IP 07:19 → MEDSURG 11:48
PROVIDERS: Internal Medicine; Orthopaedic Surgery; Admitting Provider Family Medicine; Emergency Provider Emergency Medicine; Visit Provider Student in an Organized Health Care Education/Training Program
PROC: 0QH734Z Insertion of Internal Fixation Device into Left Upper Femur, Percutaneous Approach (ICD-10-PCS; CPT 27245; principal; 2023-05-20 15:40)
DX: S72.142A Displaced intertrochanteric fracture of left femur, initial encounter for closed fracture (principal); G93.40 Encephalopathy, unspecified; N39.0 Urinary tract infection, site not specified; W01.0XXA Fall on same level from slipping, tripping and stumbling without subsequent striking against object, initial encounter; Y92.002 Bathroom of unspecified non-institutional (private) residence as the place of occurrence of the external cause; E03.9 Hypothyroidism, unspecified; B96.20 Unspecified Escherichia coli [E. coli] as the cause of diseases classified elsewhere
CPT/HCPCS: 36415; 36416; 51702; 70450; 71045; 73502; 76000; 80048; 80053; 81001; 82550; 82962; 83036; 83605; 83690; 83735; 84100; 84145; 84443; 84484; 85025; 85610; 86140; 87040; 87077; 87086; 87186; 87426; 87486; 87581; 87633; 93005; 94664; 96365; 96375; 97110; 97116; 97162; 97165; 97530; 97535; 99285; C1713; C1776; C9113; J0690; J0696; J1100; J2060; J2270; J2371; J2405; J2704; J2710; J3010; J3490; J7030; J7040; J7042

== ENCOUNTER → 2023-11-04 14:52 | Outpatient (BNVA) | payer MEDICARE, SELFPAY | PROVIDERS: PCP Family Medicine Adult Medicine; Visit Provider Family Medicine Adult Medicine | DX: E03.9 Hypothyroidism, unspecified (principal); D53.8 Other specified nutritional anemias; W19.XXXA Unspecified fall, initial encounter; R17 Unspecified jaundice; D64.9 Anemia, unspecified | CPT/HCPCS: 80053; 80061; 84443; 85025 ==

== ENCOUNTER → 2024-02-01 14:18 | Outpatient (BNVA) | payer MEDICARE, SELFPAY | PROVIDERS: PCP Family Medicine Adult Medicine; Visit Provider Nurse Practitioner | DX: R39.9 Unspecified symptoms and signs involving the genitourinary system (principal) | CPT/HCPCS: 81000 ==